=== PATIENT | female | born 2000 | race African-American/Black ===

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

== ENCOUNTER 2023-01-18 18:24 | Emergency (ER) | payer MEDICAID ==
[~2023-01-18] VITALS: Ht 162.6 cm; Wt 102.3 kg
[2023-01-18] MEDS ORDERED: IBUP1TAB5 PO (21:24)
[2023-01-18] MEDS ORDERED: HYDROcodone-ACET 5/325MG TAB PO ONE (21:30)
[2023-01-19] VITALS: BP 135/73; PULSE 82; RESP 16; TEMP 97.8; O2SAT 99
== END 2023-01-18 21:20 | disposition home or self-care (01) ==
LOC: ER 18:24
DX: S92.301A Fracture of unspecified metatarsal bone(s), right foot, initial encounter for closed fracture (principal); S93.401A Sprain of unspecified ligament of right ankle, initial encounter; J45.909 Unspecified asthma, uncomplicated; Z79.1 Long term (current) use of non-steroidal anti-inflammatories (NSAID); W01.0XXA Fall on same level from slipping, tripping and stumbling without subsequent striking against object, initial encounter; Y93.89 Activity, other specified; Y92.89 Other specified places as the place of occurrence of the external cause; Y99.8 Other external cause status
CPT/HCPCS: 29515; 73610; 73620